=== PATIENT | female | born 1970 | race Caucasian/White ===

== ENCOUNTER 2018-04-11 11:45 | Inpatient (IN) | payer MEDICAID, MEDICARE ==
[~2018-04-11] VITALS: Ht 157.5 cm; Wt 58.5 kg
[2018-04-11] MEDS ORDERED: PLEASE ENTER ALLERGIES MC SCH (12:30)
[2018-04-11] MEDS ORDERED: PROPARACAINE OPHTH 0.5%, 15ML EACHEYE ONE (12:30)
[2018-04-11] MEDS ORDERED: SODIUM CHLORIDE 0.9% 1,000ML IVBOLUS ONE ×3 (12:30→18:00)
[2018-04-11] MEDS ORDERED: SODIUM CHLORIDE FLUSH 10ML SYR IVF ONE (12:30)
[2018-04-11] MEDS ORDERED: PROPARACAINE OPHTH 0.5%, 15ML ONE (12:52)
[2018-04-11 13:00] LABS: INTERNATIONAL NORMALIZED RATIO 1.18 (0.93-1.1); PROTHROMBIN TIME 12.2 Seconds (9.6-11.5)
[2018-04-11 13:01] LABS: MEAN CORPUSCULAR HGB CONC 31.7 g/dL (32.4-35.8); MEAN CORPUSCULAR VOLUME 85.2 fL (80-100); MEAN PLATELET VOLUME 8.2 fL (7.4-10.4); PLATELET COUNT 328 x10^3/uL (130-400); RED BLOOD COUNT 4.56 x10^6/uL (3.82-5.3); RED CELL DISTRIBUTION WIDTH 28.5 % (9.6-15.2)
[2018-04-11 13:22] LABS: MD YES
[2018-04-11 13:24] LABS: BAND#(MANUAL) 0.56 x10^3/uL; BANDS%(MANUAL) 3 % (0-7); LYMPHS% (MANUAL) 8 % (22-44); MONOS#(MANUAL) 0.38 x10^3/uL (0.3-2.7); MONOS% (MANUAL) 2 % (2-9); NRBC % (MANUAL) 1 % (0-1); SEG#(MANUAL) 16.36 x10^3/uL (1.8-6.8); SEGS% (MANUAL) 87 % (42-75)
[2018-04-11 13:25] LABS: ANISOCYTOSIS 1+; MICROCYTOSIS 1+; POLYCHROMASIA 1+; TARGET CELLS 1+
[2018-04-11 13:26] LABS: <PLATELET ESTIMATE> ADEQUATE; <PLT MORPHOLOGY> NORMAL PLT MORPH
[2018-04-11] MEDS ORDERED: POTASSIUM CHLORIDE 40 MEQ in SODIUM CHLORIDE 0.9% 500 ML IV ONE (13:30)
[2018-04-11 13:57] LABS: CHLORIDE 109 mmol/L (98-107)
[2018-04-11 14:00] LABS: ALANINE AMINOTRANSFERASE 38 U/L (12-78); ALBUMIN 2.6 g/dL (3.4-5.0); ANION GAP 12 mmol/L (5-15); CALCIUM 7.9 mg/dL (8.5-10.1)
[2018-04-11 14:06] LABS: ALKALINE PHOSPHATASE 190 U/L (45-117); BILIRUBIN,TOTAL 3.7 mg/dL (0.2-1.0); CREATININE 1.56 mg/dL (0.55-1.02); TOTAL PROTEIN 7.1 g/dL (6.4-8.2); TROPONIN I 0.035 ng/mL (0.000-0.045)
[2018-04-11] MEDS ORDERED: POTASSIUM CHLORIDE 20 MEQ TAB.ER.PRT PO ONE (15:30)
[2018-04-11] MEDS ORDERED: HYDROCORTISONE 100 MG INJ. IVPush ONE (15:30)
[2018-04-11] MEDS ORDERED: ERYTHROMYCIN OPHTH 0.5%, 1GM EACHEYE ONE (15:30)
[2018-04-11 15:43] LABS: MICROSCOPIC INDICATED
[2018-04-11] MEDS ORDERED: BISACODYL 10 MG SUPP PR PRN (16:00)
[2018-04-11] MEDS ORDERED: MAGNESIUM SULFATE PMX 2GM/50ML 50 ML IV ONE (16:00)
[2018-04-11] MEDS ORDERED: POLYETHYLENE GLYCOL 17 GM PACKET PO PRN (16:00)
[2018-04-11] MEDS: ENOXAPARIN 30 MG/0.3 ML SQ SCH (16:00)
[2018-04-11 16:01] LABS: CULTURE INDICATED? NO
[2018-04-11] MEDS ORDERED: POTASSIUM CHLORIDE 20 MEQ TAB.ER.PRT ONE (16:02)
[2018-04-11 16:33] LABS: FREE T4 (FREE THYROXINE) 0.81 ng/dL (0.76-1.46); THYROID STIMULATING HORMONE 3.06 mIU/L (0.358-3.740)
[2018-04-11] MEDS ORDERED: SODIUM PHOSPHATE 20 MMOL in SODIUM CHLORIDE 0.9% 500 ML IV ONE (17:00)
[2018-04-11] MEDS: LINEZOLID PMX 600MG/300ML 300 ML IV SCH (17:00)
[2018-04-11] MEDS ORDERED: NS + 40MEQ KCL 1,000 ML IV ONE (17:30)
[2018-04-11] MEDS: NS + 40MEQ KCL 1,000 ML IV SCH (17:45)
[2018-04-11] MEDS: NOREPINEPHRINE 4 MG in SODIUM CHLORIDE 0.9% 246 ML IV PRN (18:10)
[2018-04-11] MEDS ORDERED: METRONIDAZOLE PMX 500MG/100ML 100 ML ONE (18:31)
[2018-04-11] MEDS: METRONIDAZOLE PMX 500MG/100ML 100 ML IV SCH (18:34)
[2018-04-11] MEDS ORDERED: NICOTINE 21 MG/24 HR PATCH.TD24 ONE (18:47)
[2018-04-11] MEDS ORDERED: ONDANSETRON ODT 4 MG ONE (18:47)
[2018-04-11] MEDS: ONDANSETRON 2MG/ML, 2ML IVPush PRN (18:49)
[2018-04-11] MEDS: NICOTINE 21 MG/24 HR PATCH.TD24 TD SCH (18:54)
[2018-04-11] MEDS ORDERED: VITAMIN A 10,000 UNIT CAPSULE PO ONE (19:30)
[2018-04-11] MEDS: CIPROFLOXACIN OPHTH SOLN 0.3%, 5ML EACHEYE SCH (21:25)
[2018-04-11] MEDS: CEFTRIAXONE 1,000 MG in SODIUM CHLORIDE 0.9% 50 ML IV SCH (21:27)
[2018-04-11] MEDS: FAMOTIDINE 20 MG TABLET PO SCH (21:55)
[2018-04-11 23:52] LABS: ANION GAP 14 mmol/L (5-15); CALCIUM 6.2 mg/dL (8.5-10.1); CHLORIDE 119 mmol/L (98-107); CREATININE 1.27 mg/dL (0.55-1.02)
[2018-04-12] MEDS ORDERED: POTASSIUM CHLORIDE 40 MEQ in SODIUM CHLORIDE 0.9% 100 ML IV ONE
[2018-04-12] MEDS ORDERED: OXYcodone 5 MG/5 ML ORAL.SOL UDC PO PRN (00:30)
[2018-04-12] MEDS: METRONIDAZOLE PMX 500MG/100ML 100 ML IV SCH ×3 (01:05→17:23)
[2018-04-12] MEDS ORDERED: ATEN25TA PO (01:34)
[2018-04-12] MEDS ORDERED: PROM50SU6 PO (01:34)
[2018-04-12] MEDS ORDERED: GABA300S PO (01:34)
[2018-04-12] MEDS ORDERED: FLEC50TA25 PO (01:34)
[2018-04-12] MEDS ORDERED: LORA2VIA6 PO (01:34)
[2018-04-12] MEDS ORDERED: RIVA10TA PO (01:34)
[2018-04-12] MEDS ORDERED: OXYC-307 PO (01:34)
[2018-04-12] MEDS ORDERED: MELA1TAB7 PO (01:34)
[2018-04-12 01:35] VITALS: BP 92/60
[2018-04-12] MEDS: NOREPINEPHRINE 4 MG in SODIUM CHLORIDE 0.9% 246 ML IV PRN ×2 (02:09→11:21)
[2018-04-12 02:44] LABS: ANION GAP 13 mmol/L (5-15); CALCIUM 6.2 mg/dL (8.5-10.1); CHLORIDE 120 mmol/L (98-107); CREATININE 1.09 mg/dL (0.55-1.02)
[2018-04-12 04:00] VITALS: BP 109/67
[2018-04-12] MEDS: NS + 40MEQ KCL 1,000 ML IV SCH (04:51)
[2018-04-12] MEDS: ENOXAPARIN 30 MG/0.3 ML SQ SCH ×2 (04:58→16:12)
[2018-04-12 05:27] LABS: ALBUMIN 2.2 g/dL (3.4-5.0); CHLORIDE 122 mmol/L (98-107)
[2018-04-12 05:38] LABS: ALANINE AMINOTRANSFERASE 37 U/L (12-78); ALKALINE PHOSPHATASE 168 U/L (45-117); ANION GAP 13 mmol/L (5-15); BILIRUBIN,TOTAL 2.5 mg/dL (0.2-1.0); CALCIUM 6.2 mg/dL (8.5-10.1); CHOL/HDL RATIO 6.6; CHOLESTEROL, TOTAL 93 mg/dL (140-239); CREATININE 1.13 mg/dL (0.55-1.02); HDL CHOL % 15 % (28-40); HDL CHOLESTEROL (DIRECT) 14 mg/dL (40-60); LDL CHOLESTEROL,CALCULATED 47 mg/dL (54-169); LDL/HDL RATIO 3.4 (0.5-3.0); TOTAL PROTEIN 5.8 g/dL (6.4-8.2); TRIGLYCERIDES 158 mg/dL (50-200); VLDL CHOLESTEROL 32 mg/dL (0-25)
[2018-04-12 05:41] LABS: MEAN CORPUSCULAR HEMOGLOBIN 27.6 pg (27.0-34.8); MEAN CORPUSCULAR HGB CONC 31.8 g/dL (32.4-35.8); MEAN CORPUSCULAR VOLUME 86.8 fL (80-100); MEAN PLATELET VOLUME 8.1 fL (7.4-10.4); PLATELET COUNT 294 x10^3/uL (130-400); RED BLOOD COUNT 3.12 x10^6/uL (3.82-5.3)
[2018-04-12] MEDS: LINEZOLID PMX 600MG/300ML 300 ML IV SCH ×2 (05:46→16:46)
[2018-04-12 06:28] LABS: MD YES
[2018-04-12 06:29] LABS: MONOS#(MANUAL) 0.18 x10^3/uL (0.3-2.7); MONOS% (MANUAL) 1 % (2-9)
[2018-04-12 06:30] LABS: ANISOCYTOSIS 2+; HYPOCHROMIA 1+; LYMPH#(MANUAL) 0.88 x10^3/uL (1-3.4); LYMPHS% (MANUAL) 5 % (22-44); MICROCYTOSIS 1+; POLYCHROMASIA 1+; SEG#(MANUAL) 16.45 x10^3/uL (1.8-6.8); SEGS% (MANUAL) 94 % (42-75)
[2018-04-12 06:31] LABS: <PLATELET ESTIMATE> ADEQUATE; <PLT MORPHOLOGY> NORMAL PLT MORPH; TARGET CELLS 1+
[2018-04-12] MEDS: CIPROFLOXACIN OPHTH SOLN 0.3%, 5ML EACHEYE SCH ×19 (07:49→21:02)
[2018-04-12] MEDS: SENNA/DOCUSATE TABLET PO SCH (08:02)
[2018-04-12] MEDS: OXYcodone IR 5MG TABLET PO PRN ×2 (08:02→15:11)
[2018-04-12] MEDS: FAMOTIDINE 20 MG TABLET PO SCH ×2 (08:02→21:06)
[2018-04-12] MEDS: POTASSIUM CHLORIDE 20 MEQ TAB.ER.PRT PO SCH ×3 (09:41→21:09)
[2018-04-12] MEDS: POTASSIUM CHLORIDE 40 MEQ in SODIUM CHLORIDE 0.45% 1,000 ML IV SCH ×2 (09:41→17:23)
[2018-04-12 12:44] LABS: ANION GAP 14 mmol/L (5-15); CALCIUM 6.2 mg/dL (8.5-10.1); CHLORIDE 122 mmol/L (98-107)
[2018-04-12 12:45] LABS: CREATININE 1.16 mg/dL (0.55-1.02)
[2018-04-12 15:33] LABS: CLOSTRIDIUM DIFFICILE ANTIGEN NEGATIVE; CLOSTRIDIUM DIFFICILE TOXIN NEGATIVE (Negative)
[2018-04-12] MEDS ORDERED: NOREPINEPHRINE 8 MG in SODIUM CHLORIDE 0.9% 242 ML IV PRN (19:30)
[2018-04-12] MEDS: CEFTRIAXONE 1,000 MG in SODIUM CHLORIDE 0.9% 50 ML IV SCH (21:02)
[2018-04-12] MEDS: NICOTINE 21 MG/24 HR PATCH.TD24 TD SCH (21:06)
[2018-04-13] MEDS: CIPROFLOXACIN OPHTH SOLN 0.3%, 5ML EACHEYE SCH ×15 (00:37→23:43)
[2018-04-13] MEDS: METRONIDAZOLE PMX 500MG/100ML 100 ML IV SCH (01:27)
[2018-04-13] MEDS: POTASSIUM CHLORIDE 40 MEQ in SODIUM CHLORIDE 0.45% 1,000 ML IV SCH (01:27)
[2018-04-13 04:00] VITALS: BP 103/74
[2018-04-13] MEDS: ENOXAPARIN 30 MG/0.3 ML SQ SCH ×2 (04:32→15:55)
[2018-04-13] MEDS: LINEZOLID PMX 600MG/300ML 300 ML IV SCH ×2 (04:34→17:30)
[2018-04-13 05:12] LABS: CHLORIDE 123 mmol/L (98-107)
[2018-04-13 05:34] LABS: ALANINE AMINOTRANSFERASE 37 U/L (12-78); ALBUMIN 2.1 g/dL (3.4-5.0); ALKALINE PHOSPHATASE 163 U/L (45-117); ANION GAP 14 mmol/L (5-15); BILIRUBIN,TOTAL 1.4 mg/dL (0.2-1.0); CALCIUM 6.2 mg/dL (8.5-10.1); CREATININE 1.04 mg/dL (0.55-1.02); TOTAL PROTEIN 5.8 g/dL (6.4-8.2)
[2018-04-13] MEDS ORDERED: POTASSIUM PHOSPHATE 44 MEQ in SODIUM CHLORIDE 0.9% 500 ML IV ONE (08:09)
[2018-04-13] MEDS: POTASSIUM CHLORIDE 20 MEQ TAB.ER.PRT PO SCH ×3 (08:59→21:03)
[2018-04-13] MEDS: FAMOTIDINE 20 MG TABLET PO SCH ×2 (08:59→21:03)
[2018-04-13] MEDS: ERGOCALCIFEROL 50,000 UNIT CAPSULE PO SCH (08:59)
[2018-04-13] MEDS: SENNA/DOCUSATE TABLET PO SCH (08:59)
[2018-04-13] MEDS ORDERED: LOPERAMIDE 2 MG CAPSULE PO ONE (09:00)
[2018-04-13] MEDS ORDERED: CALCIUM CHLORIDE 13.6 MEQ in SODIUM CHLORIDE 0.9% 100 ML IV ONE (10:00)
[2018-04-13] MEDS: D5%-0.2% NACL 1,000 ML IV SCH ×2 (11:31→21:03)
[2018-04-13] MEDS ORDERED: LOPERAMIDE 2 MG CAPSULE PO SCH (13:00)
[2018-04-13] MEDS: LOPERAMIDE 2 MG CAPSULE PO PRN (14:17)
[2018-04-13] MEDS: NICOTINE 21 MG/24 HR PATCH.TD24 TD SCH (20:11)
[2018-04-13] MEDS: OXYcodone IR 5MG TABLET PO PRN (21:03)
[2018-04-13] MEDS: CEFTRIAXONE 1,000 MG in SODIUM CHLORIDE 0.9% 50 ML IV SCH (21:03)
[2018-04-13] MEDS ORDERED: NOREPINEPHRINE 4 MG in SODIUM CHLORIDE 0.9% 246 ML IV PRN (22:00)
[2018-04-13] MEDS: CALCIUM CHLORIDE 13.6 MEQ in SODIUM CHLORIDE 0.9% 100 ML IV PRN (23:16)
[2018-04-14] MEDS: CIPROFLOXACIN OPHTH SOLN 0.3%, 5ML EACHEYE SCH ×5 (04:00→20:00)
[2018-04-14] MEDS ORDERED: D5%-0.2% NACL 1,000 ML IV SCH (04:00)
[2018-04-14 04:15] VITALS: BP 127/81
[2018-04-14] MEDS: ENOXAPARIN 30 MG/0.3 ML SQ SCH (04:33)
[2018-04-14] MEDS: LINEZOLID PMX 600MG/300ML 300 ML IV SCH (04:33)
[2018-04-14 04:46] LABS: MEAN CORPUSCULAR HEMOGLOBIN 27.4 pg (27.0-34.8); MEAN CORPUSCULAR VOLUME 88.4 fL (80-100); MEAN PLATELET VOLUME 7.8 fL (7.4-10.4); PLATELET COUNT 173 x10^3/uL (130-400); RED BLOOD COUNT 2.88 x10^6/uL (3.82-5.3); RED CELL DISTRIBUTION WIDTH 30.3 % (9.6-15.2)
[2018-04-14 05:03] LABS: ANION GAP 13 mmol/L (5-15); CHLORIDE 122 mmol/L (98-107)
[2018-04-14 05:05] LABS: CREATININE 0.91 mg/dL (0.55-1.02)
[2018-04-14 05:21] LABS: MD YES
[2018-04-14 05:24] LABS: <PLATELET ESTIMATE> ADEQUATE; <PLT MORPHOLOGY> NORMAL PLT MORPH; ANISOCYTOSIS 2+; BANDS%(MANUAL) 1 % (0-7); BASOS% (MANUAL) 1 % (0-1); EOS% (MANUAL) 1 % (1-7); HYPOCHROMIA 1+; LYMPH#(MANUAL) 1.92 x10^3/uL (1-3.4); LYMPHS% (MANUAL) 19 % (22-44); MICROCYTOSIS 1+; MONOS#(MANUAL) 0.51 x10^3/uL (0.3-2.7); MONOS% (MANUAL) 5 % (2-9); NRBC % (MANUAL) 2 % (0-1); POLYCHROMASIA 1+; SEG#(MANUAL) 7.37 x10^3/uL (1.8-6.8); SEGS% (MANUAL) 73 % (42-75); TARGET CELLS 1+
[2018-04-14] MEDS: CALCIUM CHLORIDE 13.6 MEQ in SODIUM CHLORIDE 0.9% 100 ML IV PRN (05:37)
[2018-04-14] MEDS ORDERED: SODIUM BICARB 8.4%, 50ML SYRINGE ONE (07:40)
[2018-04-14] MEDS ORDERED: SODIUM BICARBONATE IV SCH (08:00)
[2018-04-14] MEDS ORDERED: D5 IV SCH (08:00)
[2018-04-14] MEDS ORDERED: SODIUM BICARBONATE 1 MEQ/ML, 50ML VIAL IVPush SCH (08:00)
[2018-04-14] MEDS ORDERED: NACL IV SCH (08:00)
[2018-04-14] MEDS: SENNA/DOCUSATE TABLET PO SCH (09:00)
[2018-04-14] MEDS: FAMOTIDINE 20 MG TABLET PO SCH ×2 (09:01→20:10)
[2018-04-14] MEDS: POTASSIUM CHLORIDE 20 MEQ TAB.ER.PRT PO SCH (09:01)
[2018-04-14] MEDS ORDERED: PROPARACAINE OPHTH 0.5%, 15ML OP ONE (09:30)
[2018-04-14] MEDS: SODIUM BICARBONATE IV SCH ×2 (09:33→20:03)
[2018-04-14] MEDS: D5 IV SCH ×2 (09:33→20:03)
[2018-04-14] MEDS: NACL IV SCH ×2 (09:33→20:03)
[2018-04-14 09:49] LABS: ALBUMIN 2.1 g/dL (3.4-5.0); BILIRUBIN, DIRECT 1.1 mg/dL (0.1-0.2)
[2018-04-14 09:52] LABS: BILIRUBIN,INDIRECT 0.3 mg/dL (0.0-2.0); BILIRUBIN,TOTAL 1.4 mg/dL (0.2-1.0); TOTAL PROTEIN 5.5 g/dL (6.4-8.2)
[2018-04-14 10:17] LABS: ACETONE, SERUM Negative (Negative)
[2018-04-14 10:42] LABS: FIO2 ROOM AIR %
[2018-04-14] MEDS: ERYTHROMYCIN OPHTH 0.5%, 1GM EACHEYE SCH ×3 (12:07→20:11)
[2018-04-14] MEDS ORDERED: LINA72CA PO (14:31)
[2018-04-14] MEDS ORDERED: xeralto PO (14:31)
[2018-04-14] MEDS ORDERED: ESCI5TAB7 PO (14:31)
[2018-04-14] MEDS ORDERED: SUVO10TA PO (14:31)
[2018-04-14] MEDS ORDERED: OMEP40CA6 PO (14:31)
[2018-04-14] MEDS ORDERED: QUET50TA8 PO (14:31)
[2018-04-14] MEDS ORDERED: FURO40TA6 PO (14:31)
[2018-04-14] MEDS: NICOTINE 21 MG/24 HR PATCH.TD24 TD SCH (20:10)
[2018-04-14] MEDS: CEFTRIAXONE 1,000 MG in SODIUM CHLORIDE 0.9% 50 ML IV SCH (20:11)
[2018-04-15] MEDS: CIPROFLOXACIN OPHTH SOLN 0.3%, 5ML EACHEYE SCH ×6 (04:00→20:00)
[2018-04-15 04:39] LABS: MEAN CORPUSCULAR HGB CONC 33.3 g/dL (32.4-35.8); MEAN CORPUSCULAR VOLUME 87.2 fL (80-100); RED BLOOD COUNT 2.54 x10^6/uL (3.82-5.3); RED CELL DISTRIBUTION WIDTH 29.8 % (9.6-15.2)
[2018-04-15 04:40] LABS: ANION GAP 11 mmol/L (5-15); CALCIUM 7.3 mg/dL (8.5-10.1); CHLORIDE 117 mmol/L (98-107); CREATININE 0.83 mg/dL (0.55-1.02)
[2018-04-15] MEDS: ERYTHROMYCIN OPHTH 0.5%, 1GM EACHEYE SCH ×4 (05:23→21:00)
[2018-04-15] MEDS ORDERED: MAGNESIUM SULFATE PMX 2GM/50ML 50 ML IV ONE ×2 (05:30→13:00)
[2018-04-15] MEDS ORDERED: POTASSIUM CHLORIDE 40 MEQ in SODIUM CHLORIDE 0.9% 100 ML IV ONE (05:30)
[2018-04-15 05:40] LABS: MD YES; MEAN PLATELET VOLUME 7.6 fL (7.4-10.4); PLATELET COUNT 144 x10^3/uL (130-400)
[2018-04-15 05:42] LABS: BASOS#(MANUAL) 0.05 x10^3/uL (0-0.1); BASOS% (MANUAL) 1 % (0-1); EOS#(MANUAL) 0.05 x10^3/uL (0.0-0.4); EOS% (MANUAL) 1 % (1-7); LYMPHS% (MANUAL) 20 % (22-44); MONOS% (MANUAL) 4 % (2-9); NRBC % (MANUAL) 3 % (0-1); SEGS% (MANUAL) 74 % (42-75)
[2018-04-15 05:44] LABS: <PLATELET ESTIMATE> ADEQUATE; <PLT MORPHOLOGY> NORMAL PLT MORPH; ANISOCYTOSIS 2+; HYPOCHROMIA 1+; MICROCYTOSIS 1+; POLYCHROMASIA 1+; TARGET CELLS 1+
[2018-04-15] MEDS: SENNA/DOCUSATE TABLET PO SCH (07:34)
[2018-04-15] MEDS: NACL IV SCH (07:35)
[2018-04-15] MEDS: SODIUM BICARBONATE IV SCH (07:35)
[2018-04-15] MEDS: D5 IV SCH (07:35)
[2018-04-15] MEDS ORDERED: POTASSIUM CHLORIDE 20 MEQ TAB.ER.PRT PO SCH (08:00)
[2018-04-15] MEDS: FAMOTIDINE 20 MG TABLET PO SCH ×2 (09:07→21:00)
[2018-04-15] MEDS: POTASSIUM CHLORIDE 20 MEQ TAB.ER.PRT PO SCH ×2 (09:08→21:00)
[2018-04-15] MEDS: ENOXAPARIN 40 MG/0.4 ML SQ SCH (09:09)
[2018-04-15] MEDS ORDERED: RIVA20TA PO (12:54)
[2018-04-15] MEDS: POTASSIUM CHLORIDE 20 MEQ in DEXTROSE 5% 1,000 ML IV SCH (13:05)
[2018-04-15 16:18] VITALS: BP 116/73
[2018-04-15 17:17] LABS: ANION GAP 13 mmol/L (5-15); CALCIUM 7.4 mg/dL (8.5-10.1); CHLORIDE 115 mmol/L (98-107); CREATININE 0.71 mg/dL (0.55-1.02)
[2018-04-15 18:41] VITALS: BP 97/70
[2018-04-15] MEDS: NICOTINE 21 MG/24 HR PATCH.TD24 TD SCH (20:00)
[2018-04-15] MEDS ORDERED: POTASSIUM CHLORIDE 20 MEQ TAB.ER.PRT PO ONE (21:00)
[2018-04-15] MEDS: CEFTRIAXONE 1,000 MG in SODIUM CHLORIDE 0.9% 50 ML IV SCH (21:46)
[2018-04-15 22:31] LABS: OSMOLALITY,URINE 307 mOsm/kg (500-850)
[2018-04-15 22:37] LABS: CHLORIDE,URINE RANDOM 124 mmol/L; POTASSIUM,URINE RANDOM 29 mmol/L; SODIUM,URINE RANDOM 111 mmol/L
[2018-04-16 02:05] VITALS: BP 126/68
[2018-04-16] MEDS: POTASSIUM CHLORIDE 20 MEQ in DEXTROSE 5% 1,000 ML IV SCH ×2 (04:23→21:23)
[2018-04-16] MEDS: CIPROFLOXACIN OPHTH SOLN 0.3%, 5ML EACHEYE SCH ×6 (04:23→21:24)
[2018-04-16 05:35] LABS: CHLORIDE 114 mmol/L (98-107)
[2018-04-16 05:40] LABS: ALANINE AMINOTRANSFERASE 32 U/L (12-78); ALBUMIN 1.9 g/dL (3.4-5.0); ALKALINE PHOSPHATASE 171 U/L (45-117); ANION GAP 12 mmol/L (5-15); BILIRUBIN,TOTAL 1.3 mg/dL (0.2-1.0); CALCIUM 7.5 mg/dL (8.5-10.1); CREATININE 0.76 mg/dL (0.55-1.02); TOTAL PROTEIN 5.2 g/dL (6.4-8.2)
[2018-04-16 05:52] LABS: MEAN CORPUSCULAR HEMOGLOBIN 27.7 pg (27.0-34.8); MEAN CORPUSCULAR HGB CONC 31.7 g/dL (32.4-35.8); MEAN CORPUSCULAR VOLUME 87.5 fL (80-100); MEAN PLATELET VOLUME 8.1 fL (7.4-10.4); PLATELET COUNT 127 x10^3/uL (130-400); RED CELL DISTRIBUTION WIDTH 30.6 % (9.6-15.2)
[2018-04-16] MEDS: ERYTHROMYCIN OPHTH 0.5%, 1GM EACHEYE SCH ×4 (06:04→21:23)
[2018-04-16 06:13] LABS: MD YES
[2018-04-16 06:15] LABS: ANISOCYTOSIS 2+; EOS#(MANUAL) 0.05 x10^3/uL (0.0-0.4); EOS% (MANUAL) 1 % (1-7); HYPOCHROMIA 1+; LYMPH#(MANUAL) 0.85 x10^3/uL (1-3.4); LYMPHS% (MANUAL) 16 % (22-44); MICROCYTOSIS 1+; MONOS#(MANUAL) 0.27 x10^3/uL (0.3-2.7); MONOS% (MANUAL) 5 % (2-9); POLYCHROMASIA 1+; SEG#(MANUAL) 4.13 x10^3/uL (1.8-6.8); SEGS% (MANUAL) 78 % (42-75); TARGET CELLS 1+
[2018-04-16 06:16] LABS: <PLATELET ESTIMATE> ADEQUATE; <PLT MORPHOLOGY> NORMAL PLT MORPH
[2018-04-16 07:57] VITALS: BP 114/81
[2018-04-16] MEDS: ENOXAPARIN 40 MG/0.4 ML SQ SCH (08:42)
[2018-04-16] MEDS: POTASSIUM CHLORIDE 20 MEQ TAB.ER.PRT PO ONE ×2 (08:43→09:31)
[2018-04-16] MEDS: FAMOTIDINE 20 MG TABLET PO SCH ×3 (08:43→21:23)
[2018-04-16] MEDS: SENNA/DOCUSATE TABLET PO SCH (08:44)
[2018-04-16] MEDS: POTASSIUM CHLORIDE 20 MEQ TAB.ER.PRT PO SCH (09:00)
[2018-04-16] MEDS ORDERED: POTASSIUM CHLORIDE 40 MEQ in SODIUM CHLORIDE 0.9% 500 ML IV ONE ×2 (13:00→17:00)
[2018-04-16 13:24] LABS: ANA SCREEN NEGATIVE (Negative)
[2018-04-16 13:49] VITALS: BP 115/76
[2018-04-16] MEDS: RIVAROXABAN 20 MG TABLET PO SCH (16:07)
[2018-04-16 20:42] VITALS: BP 115/84
[2018-04-16] MEDS: NICOTINE 21 MG/24 HR PATCH.TD24 TD SCH (21:22)
[2018-04-16] MEDS: CEFTRIAXONE 1,000 MG in SODIUM CHLORIDE 0.9% 50 ML IV SCH (21:23)
[2018-04-16] MEDS: FLECAINIDE 50MG TABLET PO SCH (21:23)
[2018-04-16] MEDS: ONDANSETRON 2MG/ML, 2ML IVPush PRN (21:42)
[2018-04-17 02:46] VITALS: BP 121/80
[2018-04-17] MEDS: CIPROFLOXACIN OPHTH SOLN 0.3%, 5ML EACHEYE SCH ×6 (04:30→19:59)
[2018-04-17] MEDS: RIVAROXABAN 20 MG TABLET PO SCH (05:42)
[2018-04-17] MEDS: OXYcodone IR 5MG TABLET PO PRN ×3 (05:42→18:45)
[2018-04-17] MEDS: LOPERAMIDE 2 MG CAPSULE PO PRN (05:42)
[2018-04-17] MEDS: ONDANSETRON 2MG/ML, 2ML IVPush PRN ×2 (05:42→14:50)
[2018-04-17] MEDS: ERYTHROMYCIN OPHTH 0.5%, 1GM EACHEYE SCH ×4 (05:42→19:59)
[2018-04-17 05:58] LABS: MEAN CORPUSCULAR HEMOGLOBIN 27.8 pg (27.0-34.8); MEAN CORPUSCULAR HGB CONC 31.5 g/dL (32.4-35.8); MEAN CORPUSCULAR VOLUME 88.2 fL (80-100); MEAN PLATELET VOLUME 8.2 fL (7.4-10.4); PLATELET COUNT 139 x10^3/uL (130-400); RED CELL DISTRIBUTION WIDTH 30.5 % (9.6-15.2)
[2018-04-17 06:06] LABS: ANION GAP 11 mmol/L (5-15); CALCIUM 8.1 mg/dL (8.5-10.1); CHLORIDE 115 mmol/L (98-107); CREATININE 0.87 mg/dL (0.55-1.02)
[2018-04-17 06:29] LABS: BASOPHILS % (AUTO) 0 % (0-1); EOSINOPHILS # (AUTO) 0.12 x10^3/uL (0-0.4); EOSINOPHILS % (AUTO) 2 % (1-7); LYMPHOCYTES # (AUTO) 1.15 x10^3/uL (1-3.4); LYMPHOCYTES % (AUTO) 19 % (22-44); MD SCAN; MONOCYTES # (AUTO) 0.37 x10^3/uL (0.2-0.8); MONOCYTES % (AUTO) 6 % (2-9); NEUTROPHILS # (AUTO) 4.28 x10^3/uL (1.8-6.8); NEUTROPHILS % (AUTO) 72 % (42-75)
[2018-04-17 07:42] VITALS: BP 119/76
[2018-04-17] MEDS: QUETIAPINE FUMARATE 50 MG HOMEMEDPO SCH (09:00)
[2018-04-17] MEDS: FAMOTIDINE 20 MG TABLET PO SCH ×2 (09:13→20:00)
[2018-04-17] MEDS: SENNA/DOCUSATE TABLET PO SCH (09:13)
[2018-04-17] MEDS: FLECAINIDE 50MG TABLET PO SCH ×2 (09:14→19:58)
[2018-04-17] MEDS: CITALOPRAM 10 MG TABLET PO SCH (09:15)
[2018-04-17 09:21] VITALS: BP 131/82
[2018-04-17 10:22] LABS: TROPONIN I < 0.015 ng/mL (0.000-0.045)
[2018-04-17] MEDS: ONDANSETRON ODT 4 MG PO PRN ×2 (10:37→19:57)
[2018-04-17 13:10] VITALS: BP 115/77
[2018-04-17 19:41] VITALS: BP 104/69
[2018-04-17] MEDS: NICOTINE 21 MG/24 HR PATCH.TD24 TD SCH (19:58)
[2018-04-17] MEDS: CEFTRIAXONE 1,000 MG in SODIUM CHLORIDE 0.9% 50 ML IV SCH (19:59)
[2018-04-18 01:40] VITALS: BP 111/76
[2018-04-18] MEDS: OXYcodone IR 5MG TABLET PO PRN ×2 (02:14→09:52)
[2018-04-18] MEDS: CIPROFLOXACIN OPHTH SOLN 0.3%, 5ML EACHEYE SCH ×6 (04:00→19:50)
[2018-04-18 05:51] LABS: ALANINE AMINOTRANSFERASE 33 U/L (12-78); ALBUMIN 2.1 g/dL (3.4-5.0); ANION GAP 9 mmol/L (5-15); CALCIUM 8.2 mg/dL (8.5-10.1); CHLORIDE 114 mmol/L (98-107); CREATININE 0.85 mg/dL (0.55-1.02)
[2018-04-18 05:53] LABS: ALKALINE PHOSPHATASE 188 U/L (45-117); BILIRUBIN,TOTAL 1.3 mg/dL (0.2-1.0); TOTAL PROTEIN 5.7 g/dL (6.4-8.2)
[2018-04-18 05:59] LABS: MEAN CORPUSCULAR HEMOGLOBIN 27.8 pg (27.0-34.8); MEAN CORPUSCULAR HGB CONC 31.1 g/dL (32.4-35.8); MEAN CORPUSCULAR VOLUME 89.4 fL (80-100); PLATELET COUNT 127 x10^3/uL (130-400); RED BLOOD COUNT 2.64 x10^6/uL (3.82-5.3); RED CELL DISTRIBUTION WIDTH 29.5 % (9.6-15.2)
[2018-04-18] MEDS: ERYTHROMYCIN OPHTH 0.5%, 1GM EACHEYE SCH ×4 (06:00→20:17)
[2018-04-18] MEDS: RIVAROXABAN 20 MG TABLET PO SCH (06:09)
[2018-04-18] MEDS: ONDANSETRON 2MG/ML, 2ML IVPush PRN ×3 (06:10→20:22)
[2018-04-18 06:34] LABS: BASOPHILS # (AUTO) 0.03 x10^3/uL (0-0.1); BASOPHILS % (AUTO) 1 % (0-1); EOSINOPHILS # (AUTO) 0.16 x10^3/uL (0-0.4); EOSINOPHILS % (AUTO) 3 % (1-7); LYMPHOCYTES # (AUTO) 1.17 x10^3/uL (1-3.4); LYMPHOCYTES % (AUTO) 21 % (22-44); MD MORPH REVIEW ONLY; MONOCYTES # (AUTO) 0.64 x10^3/uL (0.2-0.8); MONOCYTES % (AUTO) 11 % (2-9); NEUTROPHILS # (AUTO) 3.65 x10^3/uL (1.8-6.8); NEUTROPHILS % (AUTO) 65 % (42-75)
[2018-04-18 06:36] LABS: ANISOCYTOSIS 2+; HYPOCHROMIA 1+; MICROCYTOSIS 1+; POLYCHROMASIA 1+
[2018-04-18 06:37] LABS: TARGET CELLS 1+
[2018-04-18 06:38] LABS: <PLATELET ESTIMATE> ADEQUATE; <PLT MORPHOLOGY> NORMAL PLT MORPH
[2018-04-18 07:38] VITALS: BP 124/80
[2018-04-18] MEDS: QUETIAPINE FUMARATE 50 MG HOMEMEDPO SCH (09:00)
[2018-04-18] MEDS: SENNA/DOCUSATE TABLET PO SCH (09:34)
[2018-04-18] MEDS: FAMOTIDINE 20 MG TABLET PO SCH ×2 (09:35→20:16)
[2018-04-18] MEDS: CITALOPRAM 10 MG TABLET PO SCH (09:35)
[2018-04-18] MEDS: FLECAINIDE 50MG TABLET PO SCH ×2 (09:35→20:16)
[2018-04-18 13:33] VITALS: BP 117/77
[2018-04-18] MEDS: VITAMIN A 10,000 UNIT CAPSULE PO SCH (15:04)
[2018-04-18] MEDS: ACETAMINOPHEN 325 MG TABLET PO PRN (16:37)
[2018-04-18 20:08] VITALS: BP 123/81
[2018-04-18] MEDS: NICOTINE 21 MG/24 HR PATCH.TD24 TD SCH (20:17)
[2018-04-18] MEDS: LORazepam 0.5MG TABLET PO PRN (21:06)
[2018-04-19] MEDS: CIPROFLOXACIN OPHTH SOLN 0.3%, 5ML EACHEYE SCH ×8 (00:13→23:59)
[2018-04-19 01:30] VITALS: BP 111/73
[2018-04-19] MEDS: ACETAMINOPHEN 325 MG TABLET PO PRN ×4 (04:19→20:01)
[2018-04-19] MEDS: RIVAROXABAN 20 MG TABLET PO SCH (05:21)
[2018-04-19] MEDS: LORazepam 0.5MG TABLET PO PRN ×3 (05:21→20:01)
[2018-04-19] MEDS: ERYTHROMYCIN OPHTH 0.5%, 1GM EACHEYE SCH ×4 (05:21→20:02)
[2018-04-19] MEDS: ONDANSETRON 2MG/ML, 2ML IVPush PRN ×3 (05:28→20:02)
[2018-04-19 07:18] VITALS: BP 119/75
[2018-04-19] MEDS: CITALOPRAM 10 MG TABLET PO SCH (07:41)
[2018-04-19] MEDS: SENNA/DOCUSATE TABLET PO SCH (07:41)
[2018-04-19] MEDS: FAMOTIDINE 20 MG TABLET PO SCH ×2 (07:41→20:01)
[2018-04-19] MEDS: FLECAINIDE 50MG TABLET PO SCH ×2 (07:41→20:02)
[2018-04-19] MEDS: QUETIAPINE FUMARATE 50 MG HOMEMEDPO SCH (07:42)
[2018-04-19 12:30] VITALS: BP 107/79
[2018-04-19] MEDS: VITAMIN A 10,000 UNIT CAPSULE PO SCH (14:25)
[2018-04-19] MEDS ORDERED: MAGNESIUM SULFATE 1 GM in SODIUM CHLORIDE 0.9% 50 ML IV ONE ×2 (16:30→18:00)
[2018-04-19 17:46] LABS: BASOPHILS # (AUTO) 0.02 x10^3/uL (0-0.1); BASOPHILS % (AUTO) 0 % (0-1); EOSINOPHILS # (AUTO) 0.26 x10^3/uL (0-0.4); EOSINOPHILS % (AUTO) 3 % (1-7); LYMPHOCYTES # (AUTO) 1.58 x10^3/uL (1-3.4); LYMPHOCYTES % (AUTO) 19 % (22-44); MD MORPH REVIEW ONLY; MEAN CORPUSCULAR HEMOGLOBIN 27.9 pg (27.0-34.8); MEAN CORPUSCULAR HGB CONC 31.4 g/dL (32.4-35.8); MEAN CORPUSCULAR VOLUME 88.9 fL (80-100); MEAN PLATELET VOLUME 7.9 fL (7.4-10.4); MONOCYTES # (AUTO) 0.76 x10^3/uL (0.2-0.8); MONOCYTES % (AUTO) 9 % (2-9); NEUTROPHILS # (AUTO) 5.86 x10^3/uL (1.8-6.8); NEUTROPHILS % (AUTO) 69 % (42-75); PLATELET COUNT 163 x10^3/uL (130-400); RED BLOOD COUNT 2.83 x10^6/uL (3.82-5.3); RED CELL DISTRIBUTION WIDTH 29.5 % (9.6-15.2)
[2018-04-19 17:55] LABS: ANION GAP 13 mmol/L (5-15); CALCIUM 8.6 mg/dL (8.5-10.1); CHLORIDE 112 mmol/L (98-107); CREATININE 1.14 mg/dL (0.55-1.02)
[2018-04-19 18:05] LABS: ANISOCYTOSIS 2+; HYPOCHROMIA 1+
[2018-04-19 18:07] LABS: MICROCYTOSIS 1+; POLYCHROMASIA 1+
[2018-04-19 18:08] LABS: TARGET CELLS 1+
[2018-04-19 18:09] LABS: <PLATELET ESTIMATE> ADEQUATE; <PLT MORPHOLOGY> NORMAL PLT MORPH
[2018-04-19] MEDS: NICOTINE 21 MG/24 HR PATCH.TD24 TD SCH (20:02)
[2018-04-19 20:28] VITALS: BP 132/79
[2018-04-20 01:14] VITALS: BP 118/79
[2018-04-20] MEDS: CIPROFLOXACIN OPHTH SOLN 0.3%, 5ML EACHEYE SCH ×5 (04:00→21:27)
[2018-04-20] MEDS: RIVAROXABAN 20 MG TABLET PO SCH (06:02)
[2018-04-20] MEDS: ERYTHROMYCIN OPHTH 0.5%, 1GM EACHEYE SCH ×5 (06:03→21:27)
[2018-04-20] MEDS: ONDANSETRON 2MG/ML, 2ML IVPush PRN (06:08)
[2018-04-20] MEDS: ACETAMINOPHEN 325 MG TABLET PO PRN ×3 (06:09→17:17)
[2018-04-20] MEDS: LORazepam 0.5MG TABLET PO PRN ×2 (06:09→21:38)
[2018-04-20 06:18] LABS: MEAN CORPUSCULAR HEMOGLOBIN 27.8 pg (27.0-34.8); MEAN CORPUSCULAR HGB CONC 31.2 g/dL (32.4-35.8); MEAN CORPUSCULAR VOLUME 89.2 fL (80-100); MEAN PLATELET VOLUME 7.8 fL (7.4-10.4); PLATELET COUNT 170 x10^3/uL (130-400); RED BLOOD COUNT 2.74 x10^6/uL (3.82-5.3)
[2018-04-20 06:29] LABS: ALANINE AMINOTRANSFERASE 34 U/L (12-78); ALBUMIN 2.2 g/dL (3.4-5.0); ANION GAP 10 mmol/L (5-15); CALCIUM 8.2 mg/dL (8.5-10.1); CHLORIDE 114 mmol/L (98-107); CREATININE 0.95 mg/dL (0.55-1.02)
[2018-04-20 06:31] LABS: ALKALINE PHOSPHATASE 187 U/L (45-117); BILIRUBIN,TOTAL 1.3 mg/dL (0.2-1.0); TOTAL PROTEIN 5.9 g/dL (6.4-8.2)
[2018-04-20 06:41] LABS: MD MORPH REVIEW ONLY
[2018-04-20 06:42] LABS: BASOPHILS # (AUTO) 0.06 x10^3/uL (0-0.1); BASOPHILS % (AUTO) 1 % (0-1); EOSINOPHILS # (AUTO) 0.18 x10^3/uL (0-0.4); EOSINOPHILS % (AUTO) 3 % (1-7); LYMPHOCYTES # (AUTO) 1.48 x10^3/uL (1-3.4); LYMPHOCYTES % (AUTO) 23 % (22-44); MONOCYTES # (AUTO) 0.54 x10^3/uL (0.2-0.8); MONOCYTES % (AUTO) 8 % (2-9); NEUTROPHILS % (AUTO) 65 % (42-75)
[2018-04-20 06:43] LABS: HYPOCHROMIA 2+; POLYCHROMASIA 1+; TARGET CELLS 1+
[2018-04-20 06:44] LABS: <PLATELET ESTIMATE> ADEQUATE; <PLT MORPHOLOGY> NORMAL PLT MORPH; MICROCYTOSIS 1+; OVALOCYTES 1+
[2018-04-20 06:45] LABS: ANISOCYTOSIS 2+
[2018-04-20 07:58] VITALS: BP 113/74
[2018-04-20] MEDS: ERGOCALCIFEROL 50,000 UNIT CAPSULE PO SCH (08:00)
[2018-04-20] MEDS: CITALOPRAM 10 MG TABLET PO SCH (09:00)
[2018-04-20] MEDS: FLECAINIDE 50MG TABLET PO SCH ×2 (09:23→19:59)
[2018-04-20] MEDS: POTASSIUM CHLORIDE 20 MEQ TAB.ER.PRT PO SCH ×2 (09:23→17:17)
[2018-04-20] MEDS: SENNA/DOCUSATE TABLET PO SCH (09:23)
[2018-04-20] MEDS: QUETIAPINE FUMARATE 50 MG HOMEMEDPO SCH (09:23)
[2018-04-20] MEDS: VITAMIN A 10,000 UNIT CAPSULE PO SCH (12:25)
[2018-04-20 14:03] VITALS: BP 118/72
[2018-04-20 18:53] VITALS: BP 118/80
[2018-04-20] MEDS: NICOTINE 21 MG/24 HR PATCH.TD24 TD SCH (19:59)
[2018-04-20] MEDS ORDERED: DIPHENHYDRAMINE 25 MG CAPSULE PO PRN (20:00)
[2018-04-20] MEDS ORDERED: CALCIUM CARBONATE 500 MG TAB.CHEW PO PRN (23:30)
[2018-04-21 01:04] VITALS: BP 113/77
[2018-04-21] MEDS: CIPROFLOXACIN OPHTH SOLN 0.3%, 5ML EACHEYE SCH ×4 (01:30→14:07)
[2018-04-21 05:47] LABS: ANION GAP 9 mmol/L (5-15); CALCIUM 8.5 mg/dL (8.5-10.1); CHLORIDE 115 mmol/L (98-107); CREATININE 0.84 mg/dL (0.55-1.02)
[2018-04-21] MEDS: ERYTHROMYCIN OPHTH 0.5%, 1GM EACHEYE SCH ×2 (06:17→11:40)
[2018-04-21] MEDS: ONDANSETRON ODT 4 MG PO PRN (06:17)
[2018-04-21 06:56] VITALS: BP 117/82
[2018-04-21] MEDS ORDERED: RIVAROXABAN 20 MG TABLET PO SCH (08:00)
[2018-04-21] MEDS: CITALOPRAM 10 MG TABLET PO SCH (08:33)
[2018-04-21] MEDS: FLECAINIDE 50MG TABLET PO SCH (08:33)
[2018-04-21] MEDS: ACETAMINOPHEN 325 MG TABLET PO PRN (08:33)
[2018-04-21] MEDS: SENNA/DOCUSATE TABLET PO SCH (08:34)
[2018-04-21] MEDS: LORazepam 0.5MG TABLET PO PRN ×2 (08:44→14:06)
[2018-04-21] MEDS: QUETIAPINE FUMARATE 50 MG HOMEMEDPO SCH (09:00)
[2018-04-21] MEDS ORDERED: NICO-487 TD (11:16)
[2018-04-21] MEDS ORDERED: ERYT1OIN5 EACHEYE (11:16)
[2018-04-21] MEDS ORDERED: LORA-445 PO (11:16)
[2018-04-21] MEDS ORDERED: CIPR2.5D EACHEYE (11:16)
[2018-04-21] MEDS ORDERED: OXYC5TAB3 PO (11:16)
[2018-04-21 13:34] VITALS: BP 115/80
[2018-04-21] MEDS: VITAMIN A 10,000 UNIT CAPSULE PO SCH (14:06)
== END 2018-04-21 15:00 | DRG 871 ==
LOC: MERGE 11:45 → ED 14:31 → EDIP 15:58 → CSU 19:59 → 4NOR 04-15 15:50
PROVIDERS: ADMIT Internal Medicine; ATTEND Family Medicine
PROC: 02HV33Z Insertion of Infusion Device into Superior Vena Cava, Percutaneous Approach (ICD-10-PCS; principal; 2018-04-11)
PROC: B548ZZA Ultrasonography of Superior Vena Cava, Guidance (ICD-10-PCS; 2018-04-11)
DX: A41.9 Sepsis, unspecified organism (principal); N17.0 Acute kidney failure with tubular necrosis; G93.40 Encephalopathy, unspecified; B17.9 Acute viral hepatitis, unspecified; E87.2 Acidosis; N25.81 Secondary hyperparathyroidism of renal origin; E46 Unspecified protein-calorie malnutrition; E87.6 Hypokalemia; E83.39 Other disorders of phosphorus metabolism; B30.9 Viral conjunctivitis, unspecified; E50.9 Vitamin A deficiency, unspecified; E83.51 Hypocalcemia; E86.0 Dehydration; F17.200 Nicotine dependence, unspecified, uncomplicated; H16.9 Unspecified keratitis; I08.1 Rheumatic disorders of both mitral and tricuspid valves; I48.2 Chronic atrial fibrillation; I50.9 Heart failure, unspecified; R62.7 Adult failure to thrive; K74.60 Unspecified cirrhosis of liver; R26.2 Difficulty in walking, not elsewhere classified; M54.9 Dorsalgia, unspecified; H16.003 Unspecified corneal ulcer, bilateral; G89.29 Other chronic pain; G43.909 Migraine, unspecified, not intractable, without status migrainosus; K80.20 Calculus of gallbladder without cholecystitis without obstruction; Z79.01 Long term (current) use of anticoagulants; Z82.49 Family history of ischemic heart disease and other diseases of the circulatory system; Z83.3 Family history of diabetes mellitus; Z85.41 Personal history of malignant neoplasm of cervix uteri; Z86.711 Personal history of pulmonary embolism; Z86.718 Personal history of other venous thrombosis and embolism; Z86.73 Personal history of transient ischemic attack (TIA), and cerebral infarction without residual deficits; Z90.710 Acquired absence of both cervix and uterus; Z95.0 Presence of cardiac pacemaker; Z88.6 Allergy status to analgesic agent; Z88.1 Allergy status to other antibiotic agents; Z88.3 Allergy status to other anti-infective agents; Z88.8 Allergy status to other drugs, medicaments and biological substances; Z68.23 Body mass index [BMI] 23.0-23.9, adult
CPT/HCPCS: 36415; 36600; 70450; 71045; 74018; 76700; 80048; 80053; 80061; 80074; 80076; 81001; 82010; 82088; 82140; 82306; 82330; 82436; 82533; 82607; 82803; 83605; 83690; 83735; 83880; 83935; 83970; 84100; 84133; 84300; 84439; 84443; 84481; 84484; 84590; 85025; 85610; 86038; 86430; 87040; 87081; 87324; 93005; 93306; 99291; G0378; J0696; J1650; J2020; J2405; J3475; J3480; J7070; Q0162; J1720; J7030; J7040; J7050; Q0163

== ENCOUNTER 2020-02-23 19:00 | Emergency (ER) | payer MEDICARE ==
[~2020-02-23] VITALS: Ht 160 cm; Wt 77.0 kg
[~2020-02-23 19:00] MED LIST: ATEN25TA PO; CIPR2.5D EACHEYE; ERYT1OIN5 EACHEYE; ESCI5TAB7 PO; FLEC50TA25 PO; FURO40TA6 PO; GABA300S PO; LINA72CA PO; LORA-445 PO; LORA2VIA6 PO; MELA1TAB7 PO; NICO-487 TD; OMEP40CA42 PO; OXYC-307 PO; OXYC5TAB3 PO; PROM50SU6 PO; QUET50TA9 PO; RIVA10TA2 PO; RIVA20TA PO; SUVO10TA PO; xeralto PO
--- NOTE | 2020-02-23 19:03 | NUR ---
GABY, Pt reports ascites with abdominal pain x 4 days, hx of liver cirrhosis. Pt connected to monitors, provided warm blankets, NAD noted at this time
[2020-02-23] MEDS ORDERED: ONDANSETRON 2MG/ML, 2ML ONE (20:48)
[2020-02-23] MEDS ORDERED: MORPHINE SULFATE 4 MG/ML, 1ML ONE ×2 (20:48→23:58)
[2020-02-23] MEDS ORDERED: ONDANSETRON 2MG/ML, 2ML IVPush ONE (21:00)
[2020-02-23] MEDS ORDERED: SODIUM CHLORIDE 0.9% 1,000ML IVBOLUS ONE (21:00)
[2020-02-23] MEDS ORDERED: SODIUM CHLORIDE FLUSH 10ML SYR IVF ONE (21:00)
[2020-02-23] MEDS: MORPHINE SULFATE 4 MG/ML, 1ML IVPush PRN (21:06)
[2020-02-23] MEDS ORDERED: PROMETHAZINE 25 MG/ML, 1ML ONE (21:15)
[2020-02-23 21:28] LABS: MEAN CORPUSCULAR HEMOGLOBIN 19.8 pg (27.0-34.8); MEAN PLATELET VOLUME 8.5 fL (7.4-10.4); PLATELET COUNT 173 x10^3/uL (130-400); RED CELL DISTRIBUTION WIDTH 21.7 % (9.6-15.2)
[2020-02-23 21:29] LABS: ALANINE AMINOTRANSFERASE 17 U/L (12-78); ALBUMIN 3.4 g/dL (3.4-5.0); ANION GAP 3 mmol/L (5-15); CALCIUM 8.7 mg/dL (8.5-10.1); CHLORIDE 119 mmol/L (98-107); CREATININE 1.33 mg/dL (0.55-1.02)
[2020-02-23] MEDS ORDERED: PROMETHAZINE 25 MG/ML, 1ML IM ONE (21:30)
[2020-02-23 21:33] LABS: ALKALINE PHOSPHATASE 163 U/L (45-117); BILIRUBIN,TOTAL 0.2 mg/dL (0.2-1.0); TOTAL PROTEIN 7.6 g/dL (6.4-8.2); TROPONIN I < 0.015 ng/mL (0.000-0.045)
[2020-02-23 21:48] LABS: MD YES
[2020-02-23 21:52] LABS: ANISOCYTOSIS 1+; BASOS#(MANUAL) 0.06 x10^3/uL (0-0.1); BASOS% (MANUAL) 1 % (0-1); EOS#(MANUAL) 0.26 x10^3/uL (0.0-0.4); EOS% (MANUAL) 4 % (1-7); HYPOCHROMIA 1+; LYMPH#(MANUAL) 1.98 x10^3/uL (1-3.4); LYMPHS% (MANUAL) 31 % (22-44); MICROCYTOSIS 1+; MONOS#(MANUAL) 0.19 x10^3/uL (0.3-2.7); MONOS% (MANUAL) 3 % (2-9); SEGS% (MANUAL) 61 % (42-75)
[2020-02-23 21:53] LABS: POLYCHROMASIA 1+
[2020-02-23 21:54] LABS: <PLATELET ESTIMATE> ADEQUATE; <PLT MORPHOLOGY> NORMAL PLT MORPH
[2020-02-23] MEDS ORDERED: OMNIPAQUE 350 MG/ML, 100ML BOTTLE ONE (22:45)
--- NOTE | 2020-02-23 22:45 | NUR ---
PT CAME TO CT WITH AN IV IN RIGHT WRIST THAT'S QUESTIONABLE FOR CONTRST INJECTION. ASSISTANT CLINICAL NURSE MANAGER STARTED 22G IN RIGHT FOREARM. SENT PT BACK TO ER WITH IV INTACT.
[2020-02-24] MEDS: MORPHINE SULFATE 4 MG/ML, 1ML IVPush PRN
[2020-02-24 00:32] VITALS: BP 124/76
== END 2020-02-24 00:34 | disposition home or self-care (01) ==
LOC: ED 02-24 00:10
DX: R07.2 Precordial pain (principal); R10.84 Generalized abdominal pain; R11.0 Nausea; R51 Headache; I48.91 Unspecified atrial fibrillation
CPT/HCPCS: 36415; 70450; 71045; 74177; 80053; 80307; 83690; 84484; 84703; 85025; 93005; 96361; 96372; 96374; 96376; 99285; J2270; J2550; J7030; Q9967

== ENCOUNTER 2020-09-14 12:25 | Emergency (ER) | payer MEDICARE, MEDICAID ==
[~2020-09-14] VITALS: Ht 162.6 cm; Wt 68.0 kg
[~2020-09-14 12:25] MED LIST changes: -CIPR2.5D EACHEYE; +CIPR2.5D2 EACHEYE; -NICO-487 TD; +NICO-587 TD; -OXYC-307 PO; +OXYC-380 PO; -OXYC5TAB3 PO; +OXYC5TAB98 PO
--- NOTE | 2020-09-14 12:46 | NUR ---
JOSIE WEST. Report MGLF and weakness today and LLE pain x 3 days. Patient oriented x 4 and eaily arousable, but very drowsy and lethargic. One of her physicians recently increased her oxycodone dose. Patient also takign phenergan. Per JENNA, pulse ox = mid 80s on RA. HX CVA and pacer. Currently wearing a Holter monitor and has appointment to see cardiology tomorrow. It is unclear who her talent acquisition administrator is as she is having difficulty staying awake for health history questions. Place don NIBP, pulse ox and lunchroom monitor. Will continue to monitor.
[2020-09-14] MEDS ORDERED: SODIUM CHLORIDE 0.9% 1,000ML IVBOLUS ONE (13:00)
[2020-09-14 13:14] LABS: BASOPHILS % (AUTO) 0 % (0-1); EOSINOPHILS % (AUTO) 3 % (1-7); LYMPHOCYTES % (AUTO) 16 % (22-44); MEAN CORPUSCULAR HEMOGLOBIN 22.3 pg (27.0-34.8); MEAN PLATELET VOLUME 8.2 fL (7.4-10.4); MONOCYTES % (AUTO) 8 % (2-9); NEUTROPHILS % (AUTO) 73 % (42-75); PLATELET COUNT 160 x10^3/uL (130-400); RED BLOOD COUNT 5.21 x10^6/uL (3.82-5.3); RED CELL DISTRIBUTION WIDTH 18.7 % (9.6-15.2)
[2020-09-14 13:15] LABS: MD NO
[2020-09-14 13:16] LABS: ALANINE AMINOTRANSFERASE 42 U/L (12-78); ALBUMIN 3.5 g/dL (3.4-5.0); ANION GAP 8 mmol/L (5-15); CALCIUM 8.8 mg/dL (8.5-10.1); CHLORIDE 103 mmol/L (98-107); CREATININE 1.08 mg/dL (0.55-1.02)
[2020-09-14 13:19] LABS: ALKALINE PHOSPHATASE 168 U/L (45-117); BILIRUBIN,TOTAL 0.7 mg/dL (0.2-1.0)
--- NOTE | 2020-09-14 13:20 | NUR ---
UA sent to lab. IV started and NS hung.
[2020-09-14 14:08] LABS: AMPHETAMINE SCREEN, URINE Negative (Negative); BARBITURATE SCREEN, URINE Negative (Negative); BENZODIAZEPINE SCREEN, URINE Negative (Negative); CANNABINOID SCREEN, URINE Negative (Negative); COCAINE SCREEN, URINE Negative (Negative); METHADONE SCREEN, URINE Negative (Negative); OPIATE SCREEN, URINE Positive (Negative)
[2020-09-14] MEDS ORDERED: NALOXONE 0.4 MG/ML, 1ML ONE (14:54)
--- NOTE | 2020-09-14 14:58 | NUR ---
O2 sat = 90-92 RA. Narcan admin per order.
[2020-09-14] MEDS ORDERED: NALOXONE 0.4 MG/ML, 1ML IVPush ONE (15:00)
[2020-09-14 15:20] VITALS: BP 118/69
--- NOTE | 2020-09-14 15:20 | NUR ---
Patient signifcantly more alert after narcan. VS improved. A&Ox4. Safe for DC.
--- NOTE | 2020-09-14 15:36 | NUR ---
Patient/Caregiver given discharge instructions and they have confirmed that they understand the instructions. Patient ambulatory with steady gait.
== END 2020-09-14 15:38 | disposition home or self-care (01) ==
LOC: ED 15:30
DX: G31.2 Degeneration of nervous system due to alcohol (principal); F10.10 Alcohol abuse, uncomplicated; R41.82 Altered mental status, unspecified; R94.31 Abnormal electrocardiogram [ECG] [EKG]; Z95.0 Presence of cardiac pacemaker; Z85.05 Personal history of malignant neoplasm of liver; Y90.0 Blood alcohol level of less than 20 mg/100 ml
CPT/HCPCS: 36415; 71045; 80053; 80307; 80320; 82140; 83690; 85025; 93005; 96361; 96374; 99285; J2310; J7030; G0480

== ENCOUNTER 2021-04-12 21:19 | Emergency (ER) | payer MEDICARE, MEDICAID ==
[~2021-04-12] VITALS: Ht 162.6 cm; Wt 65.0 kg
[~2021-04-12 21:19] MED LIST changes: -OMEP40CA42 PO; +OMEP40CA8 PO; -OXYC-380 PO; +OXYC-501 PO
--- NOTE | 2021-04-12 23:44 | NUR ---
pt to room from lobby
--- NOTE | 2021-04-12 23:51 | NUR ---
FIRST CONTACT: PATIENT REPORTS EPIGASTRIC PAIN 3-4 DAYS, WITH SOB STARTING APPROX 1800 TONIGHT.
[2021-04-13 00:01] LABS: ALBUMIN 3.3 g/dL (3.4-5.0); ANION GAP 4 mmol/L (5-15); CALCIUM 8.9 mg/dL (8.5-10.1); CHLORIDE 107 mmol/L (98-107)
[2021-04-13 00:04] LABS: CREATININE 0.86 mg/dL (0.55-1.02)
[2021-04-13 00:05] LABS: ALANINE AMINOTRANSFERASE 20 U/L (12-78); ALKALINE PHOSPHATASE 162 U/L (45-117); BILIRUBIN,TOTAL 0.2 mg/dL (0.2-1.0); TOTAL PROTEIN 8.2 g/dL (6.4-8.2)
[2021-04-13] MEDS ORDERED: METOCLOPRAMIDE 5 MG/ML, 2ML ONE (00:19)
[2021-04-13] MEDS ORDERED: MORPHINE SULFATE 4 MG/ML, 1ML ONE (00:19)
[2021-04-13] MEDS ORDERED: LORazepam 2 MG/ML, 1ML ONE (00:20)
[2021-04-13] MEDS ORDERED: LORazepam 2 MG/ML, 1ML IVPush ONE (00:30)
[2021-04-13] MEDS ORDERED: MORPHINE SULFATE 4 MG/ML, 1ML IVPush PRN (00:30)
[2021-04-13] MEDS ORDERED: METOCLOPRAMIDE 5 MG/ML, 2ML IVPush ONE (00:30)
[2021-04-13] MEDS ORDERED: SODIUM CHLORIDE 0.9% 1,000ML IVBOLUS ONE (00:30)
[2021-04-13] MEDS ORDERED: SODIUM CHLORIDE FLUSH 10ML SYR IVF ONE (00:30)
[2021-04-13 00:44] LABS: TROPONIN I < 0.015 ng/mL (0.000-0.045)
[2021-04-13 00:54] LABS: BASOPHILS % (AUTO) 1 % (0-1); EOSINOPHILS % (AUTO) 2 % (1-7); LYMPHOCYTES % (AUTO) 30 % (22-44); MEAN CORPUSCULAR HEMOGLOBIN 24.2 pg (27.0-34.8); MEAN CORPUSCULAR HGB CONC 32.3 g/dL (32.4-35.8); MONOCYTES % (AUTO) 7 % (2-9); NEUTROPHILS % (AUTO) 60 % (42-75); PLATELET COUNT 201 x10^3/uL (130-400); RED CELL DISTRIBUTION WIDTH 15.9 % (9.6-15.2)
[2021-04-13] MEDS ORDERED: OMNIPAQUE 350 MG/ML, 100ML BOTTLE ONE (02:10)
--- NOTE | 2021-04-13 03:07 | NUR ---
PATIENT UNABLE TO VOID UNTIL NS BOLUS. UA COLLECTED AND SENT TO LAB
[2021-04-13 03:25] LABS: MICROSCOPIC NOT IND
[2021-04-13 03:27] VITALS: BP 145/81
--- NOTE | 2021-04-13 04:05 | NUR ---
Patient given discharge instructions and they have confirmed that they understand the instructions. Patient ambulatory with steady gait. NAD, all questions answered appropriately, denies additional needs at this time. No personal belongings left in room after discharge.
== END 2021-04-13 04:07 | disposition home or self-care (01) ==
LOC: ED 23:59
DX: R10.84 Generalized abdominal pain (principal); R06.00 Dyspnea, unspecified; F17.200 Nicotine dependence, unspecified, uncomplicated
CPT/HCPCS: 36415; 71045; 74177; 80053; 80320; 81003; 83690; 84484; 85025; 93005; 96374; 96375; 99285; J2060; J2270; J2765; J7030; Q9967; G0480